=== PATIENT | male | born 2000 | race Caucasian/White ===

== ENCOUNTER 2018-12-25 21:27 | Emergency (ER) | payer OTHER, SELFPAY ==
[2018-12-25 21:28] VITALS: BP 142/76; PULSE 79; PULSE 84; RESP 16; RESP 17; TEMP 36.4; O2SAT 100; O2SAT 98; BMI 29.2
--- NOTE | 2018-12-25 22:02 | RAD_ITS ---
STUDY: X-RAY - LEFT RADIUS AND ULNA REASON FOR EXAM: Male, 18 years old. Laceration with glass TECHNIQUE: 2 view(s) of the forearm. COMPARISON: None. FINDINGS: No fractures or dislocations. No radiodense foreign body is seen. RAD/Forearm 2 Views IMPRESSION: No fractures or dislocations. No radiodense foreign body is seen. Electronically Signed: Rajan Angeles MD at 22:42 EDT Tel , Service support ,
--- NOTE | 2018-12-25 22:03 | ED.VIS.GEN ---
History of Present Illness Chief Complaint: Laceration Informant: Patient Narrative: Patient stated that he cut his left forearm on a piece of glass just prior to arrival at work. This is workers comp. He wanted to make sure that there is nothing in it. He was unsure if he got a piece of glass in it. Last tetanus unknown. Current severity is mild. It is on the volar aspect of his left forearm. It is superficial. He is moving his hands and wrist and forearm normally. Current severity is mild. No previous injury like this. Past Medical History - Allergies and Home Meds Allergies/Adverse Reactions: Allergies No Known Allergies Allergy (Verified 12/25/18 21:28) Primary Care Physician: Johana Gastelum MD [Primary Care Provider] - Prior records reviewed: Yes Past Medical History: None Surgical History: noncontributory Smoking Status: Never smoker Alcohol: None Drugs: None Review of Systems General: Denies: Chills, Fever, Sweats Eyes: Denies: Visual changes - bilaterally, Diplopia ENT: Denies: Rhinorrhea, Sore throat Cardiovascular: Denies: Chest pain, Palpitations Respiratory: Denies: Dyspnea, Cough, Dyspnea on exertion Gastrointestinal: Denies: Abdominal pain, Nausea, Vomiting, Diarrhea, Melena, Hematochezia Genitourinary: Denies: Dysuria, Hematuria, Frequency Musculoskeletal: Denies: Back pain, Extremity Pain Skin: Reports: Wounds - Superficial laceration left forearm. Denies: Rash Neurological: Denies: Headache, Weakness, Numbness Physical Exam Vital Signs/Narrative: Vital Signs Temp Pulse Resp BP Pulse Ox 12/25/18 21:28 97.5 F L 79 16 142/76 H 100 General: Well nourished, Well developed, No Acute Distress Head: Normocephalic, Atraumatic Eyes: Perrl, EOMI ENT: Moist mucous membranes, No rhinorrhea Neck: Supple, Nontender Cardiovascular: Regular rate, Regular rhythm, No murmurs Respiratory: No distress, CTA bilaterally, Chest nontender Abdomen: Soft, Nontender, Nondistended, Normal bowel sounds Back: Nontender, Normal Inspection Extremities: Nontender, No edema Skin: Normal color, Trauma - 2 cm vertical laceration in the left medial forearm. It is superficial barely breaking the skin. No deep muscular region noted. Negative for: No rash Neurological: Alert, Oriented x3, Cranial nerves II-XII grossly intact, Normal Strength, Normal Sensation Psychological: Normal affect, Normal Mood Diagnostic/Tx/Re-eval - Medical Decision Making Given tetanus shot. X-ray obtained of the left forearm. It is negative. His wound was cleansed with chlorhexidine. It was washed with saline 500 cc. It was anesthetized with 4 cc of simple 1% lidocaine. It was closed with 3 simple sutures. Bacitracin was applied as well as a dressing and he will follow-up as an outpatient ED Disposition - Plan for ED Patient: Disposition: Home or Assisted Living Diagnosis: Forearm laceration Instructions: ED Laceration All Referrals: Johana Gastelum MD [Primary Care Provider] - [facility] [GROUP OF PHYSICIANS] -
[2018-12-25] MEDS: Diphth,Pertuss(Acell),Tet Vac 0.5 ML Vial IM (22:20)
[2018-12-25 23:10] VITALS: RESP 16
== END 2018-12-25 23:11 | disposition home or self-care (01) ==
PROVIDERS: Emergency Provider Emergency Medicine
DX: S51.812A Laceration without foreign body of left forearm, initial encounter (principal); W25.XXXA Contact with sharp glass, initial encounter; Y93.9 Activity, unspecified; Y92.89 Other specified places as the place of occurrence of the external cause; Y99.0 Civilian activity done for income or pay; Z23 Encounter for immunization
CPT/HCPCS: 12001; 73090; 90471; 90715; 99284